=== PATIENT | male | born 1970 | race Two or more races ===

== ENCOUNTER 2019-02-04 08:17 | Emergency (ER) | payer OTHER ==
[~2019-02-04] VITALS: Ht 170.2 cm; Wt 84.0 kg
[2019-02-04] VITALS (13 sets, daily range): BP systolic 141–160; BP diastolic 95–109
[2019-02-04 09:58] LABS: BASOPHILS % 0.6 % (0.0-2.0); EOSINOPHILS % 2.2 % (0.0-5.0); HEMATOCRIT. 29.4 % (42.0-52.0); LYMPHOCYTES % 28.8 % (20.0-50.0); MEAN CORPUSCULAR HEMOGLOBIN 30.6 pg (28.0-32.0); MEAN PLATELET VOLUME 8.3 fl (7.4-10.4); MONOCYTES % 9.3 % (2.0-8.0); NEUTROPHILS % 59.1 % (40.0-76.0); PLATELET 188 x1000/uL (130-400); RED BLOOD CELL COUNT 3.26 mill/uL (4.7-6.1); RED CELL DISTRIBUTION WIDTH 14.3 % (11.6-14.6)
[2019-02-04 10:05] LABS: CHLORIDE 98 mEq/L (98-107)
[2019-02-04 10:07] LABS: INR 1.1; PROTHROMBIN TIME 11.2 sec (9.6-11.0)
[2019-02-04] MEDS ORDERED: CEFAZOLIN 1000MG PREMIX 50 ML IV ONE ×2 (12:15→12:30)
[2019-02-04] MEDS ORDERED: HEPARIN 1000 UNITS/ML 10ML ONE (12:48)
[2019-02-04] MEDS ORDERED: LIDOCAINE HCL 1% 20ML VIAL (Pyxis) INJ ONE (12:48)
[2019-02-04] MEDS ORDERED: FENTANYL CITRATE/PF 50MCG/ML 2ML VIAL ONE (12:48)
[2019-02-04] MEDS ORDERED: SODIUM BICARBONATE 4% (2.4MEQ) 5ML VIAL IV ONE (12:48)
[2019-02-04] MEDS ORDERED: FENTANYL CITRATE/PF 50MCG/ML 2ML VIAL IV ONE (13:30)
== END 2019-02-04 15:26 | disposition home or self-care (01) ==
LOC: ER 08:17
DX: T82.41XA Breakdown (mechanical) of vascular dialysis catheter, initial encounter (principal); Y84.1 Kidney dialysis as the cause of abnormal reaction of the patient, or of later complication, without mention of misadventure at the time of the procedure; Y92.9 Unspecified place or not applicable; I12.0 Hypertensive chronic kidney disease with stage 5 chronic kidney disease or end stage renal disease; N18.6 End stage renal disease; Z99.2 Dependence on renal dialysis
CPT/HCPCS: 36415; 36558; 71045; 76937; 77001; 80053; 85025; 85610; 93005; 96365; 96375; 99284; C1750; J0690; J1644; J3010; J3490; Z7610; 99152; 99153; G0500

== ENCOUNTER 2019-02-07 20:33 | Emergency (ER) | payer OTHER ==
[~2019-02-07] VITALS: Ht 170.2 cm; Wt 78.0 kg
[2019-02-08 00:03] LABS: CHLORIDE 104 mEq/L (98-107)
[2019-02-08 00:14] LABS: BASOPHILS % 0.6 % (0.0-2.0); EOSINOPHILS % 1.3 % (0.0-5.0); HEMATOCRIT. 24.2 % (42.0-52.0); HEMOGLOBIN. 8.3 g/dL (14.0-18.0); LYMPHOCYTES % 30.1 % (20.0-50.0); MEAN CORPUSCULAR HEMOGLOBIN 31.5 pg (28.0-32.0); MEAN CORPUSCULAR VOLUME 92.1 fL (80.0-94.0); MEAN PLATELET VOLUME 8.9 fl (7.4-10.4); MONOCYTES % 10.8 % (2.0-8.0); NEUTROPHILS % 57.2 % (40.0-76.0); PLATELET 151 x1000/uL (130-400); RED BLOOD CELL COUNT 2.63 mill/uL (4.7-6.1); RED CELL DISTRIBUTION WIDTH 14.9 % (11.6-14.6)
[2019-02-08 01:15] VITALS: BP 111/67
== END 2019-02-08 01:59 | disposition home or self-care (01) ==
LOC: ER 20:33
DX: T82.838A Hemorrhage due to vascular prosthetic devices, implants and grafts, initial encounter (principal); I12.0 Hypertensive chronic kidney disease with stage 5 chronic kidney disease or end stage renal disease; N18.6 End stage renal disease; Z99.2 Dependence on renal dialysis; Z98.890 Other specified postprocedural states
CPT/HCPCS: 36415; 71045; 80053; 85025; 99284; A4217; Z7610

== ENCOUNTER 2019-03-08 09:52 | Emergency (ER) | payer OTHER ==
[~2019-03-08] VITALS: Ht 172.7 cm; Wt 77.0 kg
[2019-03-08] VITALS (14 sets, daily range): BP systolic 138–191; BP diastolic 83–135
[2019-03-08 13:58] LABS: HEMATOCRIT. 29.1 % (42.0-52.0); HEMOGLOBIN. 9.6 g/dL (14.0-18.0); MEAN CORPUSCULAR HEMOGLOBIN 32.8 pg (28.0-32.0); MEAN CORPUSCULAR VOLUME 98.8 fL (80.0-94.0); MEAN PLATELET VOLUME 7.6 fl (7.4-10.4); PLATELET 168 x1000/uL (130-400); RED BLOOD CELL COUNT 2.94 mill/uL (4.7-6.1); RED CELL DISTRIBUTION WIDTH 18.7 % (11.6-14.6)
[2019-03-08 14:06] LABS: INR 1.1; PROTHROMBIN TIME 11.4 sec (9.6-11.0)
[2019-03-08 14:14] LABS: CHLORIDE 106 mEq/L (98-107)
[2019-03-08 14:16] LABS: PLATELET ESTIMATE NORMAL
[2019-03-08] MEDS ORDERED: FENTANYL CITRATE/PF 50MCG/ML 2ML VIAL ONE (16:03)
[2019-03-08] MEDS ORDERED: HEPARIN 1000 UNITS/ML 10ML ONE (16:04)
[2019-03-08] MEDS ORDERED: LIDOCAINE HCL 1% 20ML VIAL (Pyxis) INJ ONE (16:04)
[2019-03-08] MEDS ORDERED: SODIUM BICARBONATE 4% (2.4MEQ) 5ML VIAL IV ONE (16:04)
[2019-03-08] MEDS: CEFAZOLIN 1000MG PREMIX 50 ML IV NR ×2 (16:10→16:15)
[2019-03-08] MEDS ORDERED: FENTANYL CITRATE/PF 50MCG/ML 2ML VIAL IV ONE (16:30)
[2019-03-08] MEDS ORDERED: HYDROCODONE/ACETAMINOPHEN 5/325MG TABLET PO ONE (17:45)
== END 2019-03-08 18:58 | disposition home or self-care (01) ==
LOC: ER 09:52
DX: T82.42XA Displacement of vascular dialysis catheter, initial encounter (principal); I12.0 Hypertensive chronic kidney disease with stage 5 chronic kidney disease or end stage renal disease; N18.6 End stage renal disease; Z99.2 Dependence on renal dialysis; Z87.891 Personal history of nicotine dependence; Y84.1 Kidney dialysis as the cause of abnormal reaction of the patient, or of later complication, without mention of misadventure at the time of the procedure; Y92.018 Other place in single-family (private) house as the place of occurrence of the external cause
CPT/HCPCS: 36415; 36558; 71045; 76937; 77001; 80053; 85025; 85610; 96365; 96375; 99284; C1750; J0690; J1644; J3010; J3490; Z7610; 99152; 99153; G0500

== ENCOUNTER 2019-05-10 10:47 | Inpatient (IN) | payer OTHER ==
[2019-05-09 20:53] VITALS: BP 146/88
[~2019-05-10] VITALS: Ht 172.7 cm; Wt 80.3 kg
[2019-05-10] MEDS ORDERED: SODIUM CHLORIDE 0.9% 1000ML BAG (SEPSIS BOLUS) IV ONE (12:45)
[2019-05-10 13:32] LABS: CLARITY URINE CLOUDY (CLEAR); COLOR URINE YELLOW (YELLOW); KETONES URINE TRACE (NEGATIVE); LEUKOCYTE ESTERASE URINE 1+ (NEGATIVE); NITRITE URINE NEGATIVE (NEGATIVE); OCCULT BLOOD URINE NEGATIVE (NEGATIVE); PROTEIN URINE 3+ (NEGATIVE); SPECIFIC GRAVITY URINE 1.017 (1.005-1.030); UROBILINOGEN URINE 0.2 E.U./dL (0.2-1.0)
[2019-05-10] MEDS ORDERED: VANCOMYCIN 1 G PREMIX 200 ML IV ONE (14:00)
[2019-05-10] MEDS ORDERED: PIPERACILLIN/TAZ 3.375G PREMIX 50 ML IV ONE (14:00)
[2019-05-10 14:05] LABS: HEMATOCRIT. 34.9 % (42.0-52.0); HEMOGLOBIN. 11.7 g/dL (14.0-18.0); MEAN CORPUSCULAR HEMOGLOBIN 32.1 pg (28.0-32.0); MEAN CORPUSCULAR VOLUME 95.5 fL (80.0-94.0); MEAN PLATELET VOLUME 9.1 fl (7.4-10.4); PLATELET 118 x1000/uL (130-400); RED BLOOD CELL COUNT 3.65 mill/uL (4.7-6.1); RED CELL DISTRIBUTION WIDTH 14.3 % (11.6-14.6)
[2019-05-10 14:10] LABS: CHLORIDE 104 mEq/L (98-107)
[2019-05-10 14:13] LABS: INR 1.1; PROTHROMBIN TIME 11.6 sec (9.6-11.0)
[2019-05-10] MEDS ORDERED: ONDANSETRON HCL 4MG/2ML INJ IV ONE ×2 (14:30→17:45)
[2019-05-10] MEDS ORDERED: MORPHINE SULFATE 4 MG/ML CPJ (NOT FOR IM USE) IV ONE (14:30)
[2019-05-10] MEDS ORDERED: ACETAMINOPHEN 500MG TABLET PO ONE (14:30)
[2019-05-10 14:39] LABS: PLATELET ESTIMATE DECREASED
[2019-05-10] MEDS ORDERED: LABETALOL 5MG/ML SYR 20 MG/4 ML SYRINGE IV ONE (14:45)
[2019-05-10] MEDS ORDERED: SODIUM BICARBONATE 4% (2.4MEQ) 5ML VIAL IV ONE (15:08)
[2019-05-10] MEDS ORDERED: LIDOCAINE HCL 1% 20ML VIAL (Pyxis) INJ ONE (15:08)
[2019-05-10] MEDS ORDERED: PIPERACILLIN/TAZOBACTAM 3.375 G in DEXT 5% WATER 100 ML IV SCH (15:30)
[2019-05-10] MEDS ORDERED: NIFEDIPINE XL 60MG TAB PO NR (16:33)
[2019-05-10] MEDS ORDERED: LOSARTAN POTASSIUM 100 MG TABLET PO SCH (16:45)
[2019-05-10] MEDS: MORPHINE SULFATE 2 MG/ML CPJ (NOT FOR IM USE) IV PRN ×2 (17:35→22:55)
[2019-05-10 20:53] VITALS: BP 146/88
[2019-05-10] MEDS ORDERED: NIFEDIPINE XL 60MG TAB PO SCH (21:00)
[2019-05-10] MEDS: LOSARTAN POTASSIUM 100 MG TABLET PO SCH (21:58)
[2019-05-10] MEDS: NIFEDIPINE XL 30MG TAB PO SCH (21:59)
[2019-05-10] MEDS: ONDANSETRON HCL 4MG/2ML INJ IV PRN (22:38)
[2019-05-10] MEDS: PIPERACILLIN/TAZOBACTAM 2.25 G in DEXTROSE 5% WATER 50 ML IV SCH (22:38)
[2019-05-10] MEDS ORDERED: VANCOMYCIN 500 MG PREMIX 100 ML IV NR (23:00)
[2019-05-11] VITALS: BP_SYST 119; BP_SYST 141; BP_DIAS 68; BP_DIAS 69
[2019-05-11] MEDS ORDERED: OMEP40CA12 PO (00:40)
[2019-05-11] MEDS ORDERED: NIFE20CA PO (00:43)
[2019-05-11] MEDS ORDERED: HYDR100T26 PO (00:43)
[2019-05-11] MEDS ORDERED: CARV12.545 PO (00:43)
[2019-05-11] MEDS ORDERED: PRED1TAB PO (00:43)
[2019-05-11 04:00] VITALS: BP 179/88
[2019-05-11] MEDS ORDERED: METOCLOPRAMIDE HCL 10MG/2ML VIAL IV PRN ×2 (04:15→04:31)
[2019-05-11] MEDS: HYDRALAZINE 20MG/ML VIAL IV PRN (04:38)
[2019-05-11] MEDS: MORPHINE SULFATE 2 MG/ML CPJ (NOT FOR IM USE) IV PRN ×4 (04:38→20:46)
[2019-05-11] MEDS: PIPERACILLIN/TAZOBACTAM 2.25 G in DEXTROSE 5% WATER 50 ML IV SCH ×3 (05:00→20:44)
[2019-05-11 07:02] LABS: HEMATOCRIT. 35.6 % (42.0-52.0); HEMOGLOBIN. 11.9 g/dL (14.0-18.0); MEAN CORPUSCULAR VOLUME 96.2 fL (80.0-94.0); MEAN PLATELET VOLUME 9.6 fl (7.4-10.4); PLATELET 103 x1000/uL (130-400); RED CELL DISTRIBUTION WIDTH 14.4 % (11.6-14.6)
[2019-05-11 07:13] LABS: PHOSPHORUS 4.2 mg/dL (2.5-4.9)
[2019-05-11] MEDS: OMEPRAZOLE 20MG CAPSULE EXTENDED RELEASE PO SCH (07:15)
[2019-05-11] MEDS: LOSARTAN POTASSIUM 100 MG TABLET PO SCH (08:36)
[2019-05-11] MEDS: NIFEDIPINE XL 30MG TAB PO SCH ×2 (08:37→20:43)
[2019-05-11 08:38] VITALS: BP 134/76
[2019-05-11] MEDS ORDERED: LIDOCAINE HCL 1% 20ML VIAL (Pyxis) INJ ONE (09:12)
[2019-05-11] MEDS ORDERED: SODIUM POLYSTYRENE SULFONATE 15 G/60 ML BOT PO NR (10:00)
[2019-05-11 12:00] VITALS: BP 108/74
[2019-05-11 16:12] VITALS: BP 154/74
[2019-05-11 17:58] LABS: PLATELET ESTIMATE DECREASED
[2019-05-11 20:00] VITALS: BP 134/68
[2019-05-11] MEDS: ZOLPIDEM TARTRATE 5MG TABLET PO PRN (22:40)
[2019-05-12] VITALS: BP 114/71
[2019-05-12 04:00] VITALS: BP 160/99
[2019-05-12] MEDS: HYDRALAZINE 20MG/ML VIAL IV PRN (04:14)
[2019-05-12] MEDS: MORPHINE SULFATE 2 MG/ML CPJ (NOT FOR IM USE) IV PRN ×3 (04:15→22:38)
[2019-05-12] MEDS: PIPERACILLIN/TAZOBACTAM 2.25 G in DEXTROSE 5% WATER 50 ML IV SCH (04:53)
[2019-05-12] MEDS: OMEPRAZOLE 20MG CAPSULE EXTENDED RELEASE PO SCH (07:05)
[2019-05-12 07:38] LABS: HEMATOCRIT. 32.8 % (42.0-52.0); MEAN CORPUSCULAR HEMOGLOBIN 32.4 pg (28.0-32.0); MEAN CORPUSCULAR VOLUME 96.4 fL (80.0-94.0); MEAN PLATELET VOLUME 9.4 fl (7.4-10.4); PLATELET 92 x1000/uL (130-400); RED CELL DISTRIBUTION WIDTH 14.4 % (11.6-14.6)
[2019-05-12 07:56] LABS: PHOSPHORUS 6.4 mg/dL (2.5-4.9)
[2019-05-12 08:00] VITALS: BP 101/71
[2019-05-12] MEDS: NIFEDIPINE XL 30MG TAB PO SCH ×2 (09:00→22:37)
[2019-05-12] MEDS: LOSARTAN POTASSIUM 100 MG TABLET PO SCH (09:32)
[2019-05-12 12:00] VITALS: BP 129/82
[2019-05-12 12:16] LABS: PLATELET ESTIMATE DECREASED
[2019-05-12] MEDS: CALCIUM ACETATE 667 MG TABLET PO SCH ×2 (13:17→17:55)
[2019-05-12 16:00] VITALS: BP 133/91
[2019-05-12] MEDS ORDERED: ACETAMINOPHEN 325MG TABLET PO PRN (17:30)
[2019-05-12] MEDS: HYDROCODONE/ACETAMINOPHEN 5/325MG TABLET PO PRN (17:56)
[2019-05-12 20:00] VITALS: BP 140/97
[2019-05-13] VITALS: BP 160/101
[2019-05-13] MEDS: ZOLPIDEM TARTRATE 5MG TABLET PO PRN ×2 (00:28→23:40)
[2019-05-13] MEDS: HYDRALAZINE 20MG/ML VIAL IV PRN (00:38)
[2019-05-13 04:00] VITALS: BP 144/90
[2019-05-13] MEDS: OMEPRAZOLE 20MG CAPSULE EXTENDED RELEASE PO SCH (06:39)
[2019-05-13] MEDS: HYDROCODONE/ACETAMINOPHEN 5/325MG TABLET PO PRN ×2 (06:40→12:32)
[2019-05-13 06:51] LABS: BASOPHILS % 0.5 % (0.0-2.0); EOSINOPHILS % 2.8 % (0.0-5.0); HEMATOCRIT. 34.6 % (42.0-52.0); HEMOGLOBIN. 11.5 g/dL (14.0-18.0); LYMPHOCYTES % 9.5 % (20.0-50.0); MEAN CORPUSCULAR HEMOGLOBIN 32.3 pg (28.0-32.0); MEAN CORPUSCULAR VOLUME 96.9 fL (80.0-94.0); MONOCYTES % 9.9 % (2.0-8.0); NEUTROPHILS % 77.3 % (40.0-76.0); PLATELET 96 x1000/uL (130-400); RED BLOOD CELL COUNT 3.57 mill/uL (4.7-6.1); RED CELL DISTRIBUTION WIDTH 14.6 % (11.6-14.6)
[2019-05-13 08:00] VITALS: BP 165/92
[2019-05-13 08:10] LABS: PHOSPHORUS 7.2 mg/dL (2.5-4.9)
[2019-05-13] MEDS: LOSARTAN POTASSIUM 100 MG TABLET PO SCH (08:33)
[2019-05-13] MEDS: NIFEDIPINE XL 30MG TAB PO SCH ×2 (08:33→22:02)
[2019-05-13] MEDS: CALCIUM ACETATE 667 MG TABLET PO SCH ×3 (09:56→17:41)
[2019-05-13 12:00] VITALS: BP 177/106
[2019-05-13] MEDS: CLONIDINE 0.1MG TABLET PO PRN (12:29)
[2019-05-13 16:00] VITALS: BP 137/83
[2019-05-13] MEDS ORDERED: VANCOMYCIN 500 MG PREMIX 100 ML IV NR (17:00)
[2019-05-13 20:00] VITALS: BP 135/82
[2019-05-13] MEDS: MORPHINE SULFATE 2 MG/ML CPJ (NOT FOR IM USE) IV PRN (22:03)
[2019-05-13] MEDS ORDERED: MORPHINE SULFATE 2 MG/ML CPJ (NOT FOR IM USE) IV PRN (23:59)
[2019-05-14] VITALS: BP 131/96
[2019-05-14 04:00] VITALS: BP 158/104
[2019-05-14] MEDS: OMEPRAZOLE 20MG CAPSULE EXTENDED RELEASE PO SCH (06:59)
[2019-05-14] MEDS: MORPHINE SULFATE 2 MG/ML CPJ (NOT FOR IM USE) IV PRN (07:17)
[2019-05-14 07:57] LABS: BASOPHILS % 0.4 % (0.0-2.0); HEMATOCRIT. 32.4 % (42.0-52.0); HEMOGLOBIN. 10.9 g/dL (14.0-18.0); LYMPHOCYTES % 21.1 % (20.0-50.0); MEAN CORPUSCULAR HEMOGLOBIN 32.4 pg (28.0-32.0); MEAN CORPUSCULAR VOLUME 96.1 fL (80.0-94.0); MEAN PLATELET VOLUME 9.4 fl (7.4-10.4); MONOCYTES % 13.5 % (2.0-8.0); PLATELET 94 x1000/uL (130-400); RED BLOOD CELL COUNT 3.37 mill/uL (4.7-6.1); RED CELL DISTRIBUTION WIDTH 14.4 % (11.6-14.6)
[2019-05-14 08:00] VITALS: BP 159/102
[2019-05-14 08:26] LABS: PHOSPHORUS 5.4 mg/dL (2.5-4.9)
[2019-05-14] MEDS: CALCIUM ACETATE 667 MG TABLET PO SCH ×3 (08:46→18:05)
[2019-05-14] MEDS: LOSARTAN POTASSIUM 100 MG TABLET PO SCH (08:46)
[2019-05-14] MEDS: NIFEDIPINE XL 30MG TAB PO SCH ×2 (08:47→21:47)
[2019-05-14] MEDS ORDERED: CEFAZOLIN 1000MG PREMIX 50 ML IV SCH (10:15)
[2019-05-14] MEDS: CEFAZOLIN 2000MG in DEXTROSE 5% WATER 100ML IV SCH (11:15)
[2019-05-14 12:00] VITALS: BP 159/98
[2019-05-14] MEDS: HYDROCODONE/ACETAMINOPHEN 5/325MG TABLET PO PRN ×3 (13:10→22:17)
[2019-05-14 16:00] VITALS: BP 151/102
[2019-05-14 20:00] VITALS: BP 160/97
[2019-05-14] MEDS: ZOLPIDEM TARTRATE 5MG TABLET PO PRN (23:00)
[2019-05-15] VITALS (7 sets, daily range): BP systolic 112–182; BP diastolic 87–116
[2019-05-15] MEDS: HYDROCODONE/ACETAMINOPHEN 5/325MG TABLET PO PRN ×3 (02:49→17:02)
[2019-05-15] MEDS: CLONIDINE 0.1MG TABLET PO PRN ×2 (02:51→23:32)
[2019-05-15] MEDS: OMEPRAZOLE 20MG CAPSULE EXTENDED RELEASE PO SCH (06:56)
[2019-05-15 07:07] LABS: HEMATOCRIT. 31.5 % (42.0-52.0); HEMOGLOBIN. 10.5 g/dL (14.0-18.0); MEAN CORPUSCULAR VOLUME 95.7 fL (80.0-94.0); MEAN PLATELET VOLUME 9.4 fl (7.4-10.4); PLATELET 91 x1000/uL (130-400); RED BLOOD CELL COUNT 3.29 mill/uL (4.7-6.1); RED CELL DISTRIBUTION WIDTH 14.3 % (11.6-14.6)
[2019-05-15 08:11] LABS: PHOSPHORUS 6.1 mg/dL (2.5-4.9)
[2019-05-15] MEDS: NIFEDIPINE XL 30MG TAB PO SCH (09:55)
[2019-05-15] MEDS: CALCIUM ACETATE 667 MG TABLET PO SCH ×3 (09:55→18:02)
[2019-05-15] MEDS: LOSARTAN POTASSIUM 100 MG TABLET PO SCH (09:55)
[2019-05-15] MEDS: MORPHINE SULFATE 2 MG/ML CPJ (NOT FOR IM USE) IV PRN ×2 (10:21→20:20)
[2019-05-15] MEDS ORDERED: NIFE90TA2 PO (11:53)
[2019-05-15] MEDS ORDERED: MINO2.5T2 PO (11:54)
[2019-05-15] MEDS ORDERED: NIFEDIPINE XL 30MG TAB PO NR (12:00)
[2019-05-15] MEDS: CEFAZOLIN 2000MG in DEXTROSE 5% WATER 100ML IV SCH (12:25)
[2019-05-15] MEDS: MINOXIDIL 2.5MG TABLET PO SCH ×2 (12:51→20:21)
[2019-05-15 15:02] LABS: PLATELET ESTIMATE DECREASED
[2019-05-15] MEDS: HYDRALAZINE 20MG/ML VIAL IV PRN (16:50)
[2019-05-15] MEDS: NIFEDIPINE XL 60MG TAB PO SCH (20:21)
[2019-05-15] MEDS: CARVEDILOL 6.25 MG TABLET PO SCH (20:21)
[2019-05-15] MEDS ORDERED: MINOXIDIL 2.5MG TABLET PO SCH (21:00)
[2019-05-15] MEDS: HYDROMORPHONE HCL/PF 2MG/ML CPJ IV PRN (21:26)
[2019-05-15] MEDS: DIPHENHYDRAMINE 50MG CAPSULE PO PRN (23:32)
[2019-05-15] MEDS: ONDANSETRON HCL 4MG/2ML INJ IV PRN (23:32)
[2019-05-15] MEDS: ZOLPIDEM TARTRATE 5MG TABLET PO PRN (23:32)
[2019-05-16 04:00] VITALS: BP 142/85
[2019-05-16] MEDS: OMEPRAZOLE 20MG CAPSULE EXTENDED RELEASE PO SCH (05:48)
[2019-05-16] MEDS: HYDROMORPHONE HCL/PF 2MG/ML CPJ IV PRN ×4 (05:57→22:13)
[2019-05-16 06:47] LABS: HEMATOCRIT. 32.6 % (42.0-52.0); HEMOGLOBIN. 11.2 g/dL (14.0-18.0); MEAN CORPUSCULAR HEMOGLOBIN 32.2 pg (28.0-32.0); MEAN CORPUSCULAR VOLUME 93.6 fL (80.0-94.0); MEAN PLATELET VOLUME 8.8 fl (7.4-10.4); PLATELET 90 x1000/uL (130-400); RED BLOOD CELL COUNT 3.48 mill/uL (4.7-6.1); RED CELL DISTRIBUTION WIDTH 14.1 % (11.6-14.6)
[2019-05-16 07:31] LABS: PHOSPHORUS 4.7 mg/dL (2.5-4.9)
[2019-05-16 08:00] VITALS: BP 137/88
[2019-05-16] MEDS: NIFEDIPINE XL 60MG TAB PO SCH ×2 (09:05→20:55)
[2019-05-16] MEDS: LOSARTAN POTASSIUM 100 MG TABLET PO SCH (09:05)
[2019-05-16] MEDS: MINOXIDIL 2.5MG TABLET PO SCH ×2 (09:06→20:55)
[2019-05-16] MEDS: CARVEDILOL 6.25 MG TABLET PO SCH ×2 (09:06→20:55)
[2019-05-16] MEDS: CALCIUM ACETATE 667 MG TABLET PO SCH ×3 (09:07→17:42)
[2019-05-16] MEDS: CEFAZOLIN 2000MG in DEXTROSE 5% WATER 100ML IV SCH (12:02)
[2019-05-16] MEDS: DIPHENHYDRAMINE 50MG CAPSULE PO PRN (12:49)
[2019-05-16 13:09] VITALS: BP 131/80
[2019-05-16 14:13] LABS: PLATELET ESTIMATE DECREASED
[2019-05-16 20:00] VITALS: BP 129/78
[2019-05-16] MEDS: ZOLPIDEM TARTRATE 5MG TABLET PO PRN (23:44)
[2019-05-17] VITALS: BP 141/86
[2019-05-17] MEDS: HYDROMORPHONE HCL/PF 2MG/ML CPJ IV PRN ×5 (02:14→21:54)
[2019-05-17 04:00] VITALS: BP 139/86
[2019-05-17] MEDS: OMEPRAZOLE 20MG CAPSULE EXTENDED RELEASE PO SCH (06:15)
[2019-05-17 06:16] LABS: HEMATOCRIT. 34.7 % (42.0-52.0); MEAN CORPUSCULAR HEMOGLOBIN 32.3 pg (28.0-32.0); MEAN CORPUSCULAR VOLUME 93.5 fL (80.0-94.0); MEAN PLATELET VOLUME 8.9 fl (7.4-10.4); PLATELET 106 x1000/uL (130-400); RED BLOOD CELL COUNT 3.71 mill/uL (4.7-6.1); RED CELL DISTRIBUTION WIDTH 14.3 % (11.6-14.6)
[2019-05-17 08:00] VITALS: BP 144/87
[2019-05-17] MEDS: NIFEDIPINE XL 60MG TAB PO SCH ×2 (08:58→21:56)
[2019-05-17] MEDS: CALCIUM ACETATE 667 MG TABLET PO SCH ×3 (08:58→19:09)
[2019-05-17] MEDS: CARVEDILOL 6.25 MG TABLET PO SCH ×2 (08:59→21:55)
[2019-05-17] MEDS: LOSARTAN POTASSIUM 100 MG TABLET PO SCH (08:59)
[2019-05-17] MEDS: MINOXIDIL 2.5MG TABLET PO SCH ×2 (08:59→21:00)
[2019-05-17 09:03] LABS: PHOSPHORUS 4.3 mg/dL (2.5-4.9)
[2019-05-17 09:35] LABS: PLATELET ESTIMATE SLIGHTLY DECREASED
[2019-05-17 12:00] VITALS: BP 152/102
[2019-05-17 16:00] VITALS: BP 152/94
[2019-05-17] MEDS: CEFAZOLIN 2000MG in DEXTROSE 5% WATER 100ML IV SCH (16:00)
[2019-05-17 20:00] VITALS: BP 131/87
[2019-05-17] MEDS: ZOLPIDEM TARTRATE 5MG TABLET PO PRN (23:04)
[2019-05-18] VITALS (17 sets, daily range): BP systolic 128–160; BP diastolic 79–105
[2019-05-18] MEDS: OMEPRAZOLE 20MG CAPSULE EXTENDED RELEASE PO SCH (06:34)
[2019-05-18 07:37] LABS: HEMATOCRIT. 32.5 % (42.0-52.0); HEMOGLOBIN. 11.3 g/dL (14.0-18.0); MEAN CORPUSCULAR HEMOGLOBIN 32.4 pg (28.0-32.0); MEAN CORPUSCULAR VOLUME 93.7 fL (80.0-94.0); MEAN PLATELET VOLUME 8.8 fl (7.4-10.4); PLATELET 95 x1000/uL (130-400); RED BLOOD CELL COUNT 3.47 mill/uL (4.7-6.1); RED CELL DISTRIBUTION WIDTH 14.2 % (11.6-14.6)
[2019-05-18] MEDS: CALCIUM ACETATE 667 MG TABLET PO SCH (07:50)
[2019-05-18] MEDS ORDERED: SODIUM BICARBONATE 4% (2.4MEQ) 5ML VIAL IV ONE (08:54)
[2019-05-18] MEDS ORDERED: LIDOCAINE HCL 1% 20ML VIAL (Pyxis) INJ ONE (08:54)
[2019-05-18] MEDS ORDERED: FENTANYL CITRATE/PF 50MCG/ML 2ML VIAL ONE (08:59)
[2019-05-18] MEDS: LOSARTAN POTASSIUM 100 MG TABLET PO SCH (09:00)
[2019-05-18] MEDS: CARVEDILOL 6.25 MG TABLET PO SCH (09:00)
[2019-05-18] MEDS: MINOXIDIL 2.5MG TABLET PO SCH (09:00)
[2019-05-18] MEDS: NIFEDIPINE XL 60MG TAB PO SCH (09:00)
[2019-05-18] MEDS ORDERED: FENTANYL CITRATE/PF 50MCG/ML 2ML VIAL IV ONE (09:30)
[2019-05-18] MEDS: HYDROMORPHONE HCL/PF 2MG/ML CPJ IV PRN (11:47)
[2019-05-18] MEDS: CEFAZOLIN 2000MG in DEXTROSE 5% WATER 100ML IV SCH (12:58)
[2019-05-18 13:15] LABS: PLATELET ESTIMATE DECREASED
[2019-05-18 14:31] LABS: PHOSPHORUS 3.8 mg/dL (2.5-4.9)
[2019-05-18] MEDS ORDERED: HYDR-4001 MT (17:31)
== END 2019-05-18 18:30 | disposition home or self-care (01) | DRG 721 ==
LOC: ER 11:10 → EDBEDREQ 12:49 → 6WST 14:34 → EDBEDREQ 14:40 → EDBEDREQTM 14:40 → ENRESERV 20:21
PROVIDERS: ADMIT Internal Medicine; ATTEND Internal Medicine
PROC: 02PYX3Z Removal of Infusion Device from Great Vessel, External Approach (ICD-10-PCS; 2019-05-10)
PROC: 5A1D70Z Performance of Urinary Filtration, Intermittent, Less than 6 Hours Per Day (ICD-10-PCS; principal; 2019-05-11)
PROC: 02HV33Z Insertion of Infusion Device into Superior Vena Cava, Percutaneous Approach (ICD-10-PCS; 2019-05-11)
PROC: B548ZZA Ultrasonography of Superior Vena Cava, Guidance (ICD-10-PCS; 2019-05-11)
PROC: 5A1D70Z Performance of Urinary Filtration, Intermittent, Less than 6 Hours Per Day (ICD-10-PCS; 2019-05-13)
PROC: 5A1D70Z Performance of Urinary Filtration, Intermittent, Less than 6 Hours Per Day (ICD-10-PCS; 2019-05-15)
PROC: 5A1D70Z Performance of Urinary Filtration, Intermittent, Less than 6 Hours Per Day (ICD-10-PCS; 2019-05-17)
PROC: 02PYX3Z Removal of Infusion Device from Great Vessel, External Approach (ICD-10-PCS; 2019-05-18)
PROC: 02HV33Z Insertion of Infusion Device into Superior Vena Cava, Percutaneous Approach (ICD-10-PCS; 2019-05-18)
PROC: 0JH63XZ Insertion of Tunneled Vascular Access Device into Chest Subcutaneous Tissue and Fascia, Percutaneous Approach (ICD-10-PCS; 2019-05-18)
PROC: B5181ZA Fluoroscopy of Superior Vena Cava using Low Osmolar Contrast, Guidance (ICD-10-PCS; 2019-05-18)
DX: T80.211A Bloodstream infection due to central venous catheter, initial encounter (principal); A41.01 Sepsis due to Methicillin susceptible Staphylococcus aureus; I12.0 Hypertensive chronic kidney disease with stage 5 chronic kidney disease or end stage renal disease; D69.6 Thrombocytopenia, unspecified; E87.1 Hypo-osmolality and hyponatremia; N18.6 End stage renal disease; M48.02 Spinal stenosis, cervical region; D63.8 Anemia in other chronic diseases classified elsewhere; I16.0 Hypertensive urgency; B96.89 Other specified bacterial agents as the cause of diseases classified elsewhere; Y84.8 Other medical procedures as the cause of abnormal reaction of the patient, or of later complication, without mention of misadventure at the time of the procedure; N25.81 Secondary hyperparathyroidism of renal origin; Z82.49 Family history of ischemic heart disease and other diseases of the circulatory system; Z99.2 Dependence on renal dialysis
CPT/HCPCS: 36415; 36581; 36589; 71045; 72128; 72131; 74176; 76937; 77001; 80048; 80053; 80202; 81003; 83605; 83735; 84100; 84145; 84484; 85025; 87077; 87804; 93005; 93306; 99152; 99153; 99285; C1750; C1752; C1769; J0360; J0690; J1170; J1642; J2270; J2405; J2543; J2765; J3010; J3370; J3490; J7030; J7060; Q0163; G0500

== ENCOUNTER 2019-07-08 13:39 | Emergency (ER) | payer OTHER ==
[~2019-07-08] VITALS: Ht 167.6 cm; Wt 82.0 kg
[~2019-07-08 13:39] MED LIST: CARV12.545 PO; HYDR-4001 MT; HYDR100T26 PO; MINO2.5T2 PO; NIFE90TA2 PO; OMEP40CA12 PO; PRED1TAB PO
[2019-07-08] MEDS ORDERED: ACETAMINOPHEN WITH CODEINE 300/30MG TABLET PO STA (14:31)
[2019-07-08] MEDS ORDERED: SODIUM CHLORIDE 0.9% 1,000 ML IV ONE (14:31)
[2019-07-08 14:45] LABS: BASOPHILS % 0.4 % (0.0-2.0); EOSINOPHILS % 0.6 % (0.0-5.0); HEMATOCRIT. 50.3 % (42.0-52.0); HEMOGLOBIN. 16.5 g/dL (14.0-18.0); LYMPHOCYTES % 9.2 % (20.0-50.0); MEAN CORPUSCULAR HEMOGLOBIN 31.8 pg (28.0-32.0); MEAN CORPUSCULAR VOLUME 96.7 fL (80.0-94.0); MEAN PLATELET VOLUME 8.4 fl (7.4-10.4); NEUTROPHILS % 83.8 % (40.0-76.0); PLATELET 225 x1000/uL (130-400); RED CELL DISTRIBUTION WIDTH 16.9 % (11.6-14.6)
[2019-07-08 14:52] LABS: CHLORIDE 108 mEq/L (98-107)
[2019-07-08 14:56] LABS: ETHANOL BLOOD < 10 mg/dL
[2019-07-08 17:00] VITALS: BP 167/91
== END 2019-07-08 17:50 | disposition home or self-care (01) ==
LOC: ER 13:39
DX: G40.909 Epilepsy, unspecified, not intractable, without status epilepticus (principal); I12.0 Hypertensive chronic kidney disease with stage 5 chronic kidney disease or end stage renal disease; N18.6 End stage renal disease; Z94.0 Kidney transplant status
CPT/HCPCS: 36415; 70450; 71045; 80053; 80320; 85025; 93005; 99285; J7030; Z7610; G0480

== ENCOUNTER 2019-10-15 03:34 | Emergency (ER) | payer MEDICARE, OTHER ==
[~2019-10-15] VITALS: Ht 170.2 cm; Wt 79.4 kg
[2019-10-15] MEDS ORDERED: LORAZEPAM 2MG/ML CPJ IV ONE (04:00)
[2019-10-15 04:20] LABS: BASOPHILS % 1.1 % (0.0-2.0); EOSINOPHILS % 1.5 % (0.0-5.0); HEMATOCRIT. 37.2 % (42.0-52.0); HEMOGLOBIN. 12.7 g/dL (14.0-18.0); LYMPHOCYTES % 25.1 % (20.0-50.0); MEAN CORPUSCULAR HEMOGLOBIN 33.8 pg (28.0-32.0); MEAN CORPUSCULAR VOLUME 98.7 fL (80.0-94.0); MEAN PLATELET VOLUME 8.8 fl (7.4-10.4); MONOCYTES % 12.6 % (2.0-8.0); NEUTROPHILS % 59.7 % (40.0-76.0); PLATELET 181 x1000/uL (130-400); RED BLOOD CELL COUNT 3.77 mill/uL (4.7-6.1); RED CELL DISTRIBUTION WIDTH 13.5 % (11.6-14.6)
[2019-10-15 04:27] LABS: CHLORIDE 99 mEq/L (98-107)
[2019-10-15 07:30] VITALS: BP 139/91
== END 2019-10-15 09:52 | disposition home or self-care (01) ==
LOC: ER 03:34
DX: F41.9 Anxiety disorder, unspecified (principal); I10 Essential (primary) hypertension; R53.1 Weakness; Z79.899 Other long term (current) drug therapy
CPT/HCPCS: 36415; 71045; 80053; 84484; 85025; 93005; 96374; 99285; J2060